=== PATIENT | female | born 1985 | race Caucasian/White ===

== ENCOUNTER → 2020-07-27 11:10 | Outpatient (CLI) | payer OTHER, SELFPAY ==
--- NOTE | ~2020-07-27 | MR_ITS ---
EXAMINATION: MR brain/brain stem wo con EXAM DATE: 07/27/2020 11:52 INDICATION: Losing control of left-sided body. Right side paresthesia. Speech impairment. Symptoms si nce December 2019 progressing. TECHNIQUE: Magnetic resonance imaging (MRI) of the brain/brain stem obtained without contrast. Florecita al T1, axial diffusion, gradient echo (T2*), T1, T2, FLAIR sequences obtained. Demyelinating protoco l was utilized including sagittal FLAIR images. There is no prior study for comparison. FINDINGS: There are approximately 7 subcentimeter T2/FLAIR signal hyperintensities identified, most o f them involving the corpus callosum. This is adding specificity for multiple sclerosis as a likely e tiology. No posterior fossa signal abnormalities. No acute infarction, intracranial hemorrhage or bra in mass. No hydrocephalus or extra-axial collections. The orbits and soft tissues are unremarkable. IMPRESSION: White matter signal abnormalities with corpus callosal involvement, consistent with multi ple sclerosis. Reviewed, dictated and finalized at location A. IMPRESSION: White matter signal abnormalities with corpus callosal involvement, consistent with multiple sclerosis.
== END ==
PROVIDERS: PCP Family Medicine; Visit Provider Family Medicine
DX: R20.2 Paresthesia of skin (principal)
CPT/HCPCS: 70551

== ENCOUNTER → 2020-11-03 07:35 | Outpatient (CLI) | payer OTHER, SELFPAY ==
--- NOTE | ~2020-11-03 | MR_ITS ---
EXAMINATION: MR thoracic spine wo con EXAM DATE: 11/03/2020 08:30 INDICATION: Multiple sclerosis ms diagnosed 09/2020, left leg weakness, pt is , no ca . TECHNIQUE: Multi-sequential, multiplanar MR images of the thoracic spine were obtained without contra st. Sagittal T1, T2, T2 fat saturation, axial T2 weighted images reviewed. There is no prior study for comparison. FINDINGS: There are at least 3 thoracic spinal cord T2 signal abnormalities consistent with multiple sclerosis. Evidence of slight volume loss within these indicating they're most likely quiescent, alth ough contrast was not administered to assess definitively. The vertebral bodies are aligned in the AP dimension. Vertebral body and disc heights are well-maintained. There are no suspicious marrow signa l abnormalities. Paraspinal soft tissue is unremarkable. Some small midthoracic Schmorl's nodes, mini mal spondylosis. Thoracic neural foramen and central canal widely patent. Mild thoracic facet arthrop athy. IMPRESSION: 1. At least 3 vague regions spinal cord signal abnormality consistent with quiescent multiple sclero sis. 2. Minimal disc disease, mild facet arthropathy. Reviewed, dictated and finalized at location A. [employer] SERV[employer] C[employer]IER IMPRESSION: 1. At least 3 vague regions spinal cord signal abnormality consistent with mavis escent multiple sclerosis. 2. Minimal disc disease, mild facet arthropathy.
--- NOTE | ~2020-11-03 | MR_ITS ---
EXAMINATION: MR cervical spine wo con EXAM DATE: 11/03/2020 09:50 INDICATION: Multiple sclerosis ms diagnosed 09/2020, left leg weakness, pt is , no ca . TECHNIQUE: Multi-sequential, multiplanar MR images of the cervical spine were obtained without contra st. Axial T2, axial T2 MERGE sequence. Sagittal T1, T2, T2 fat saturation images also obtained. Th ere is no prior study for comparison. FINDINGS: Scattered regions of vaguely increased T2 spinal cord signal abnormality at the T3, T4-5 a nd T1-2 levels. Slight volume loss suspected at the T1-2 level consistent with myelomalacia. Most lik mirza plaques of multiple sclerosis. There is mild cervical arthropathy. No central canal or neural for aminal stenosis. There are no suspicious marrow signal abnormalities. Paraspinal soft tissue is unrem arkable. IMPRESSION: Scattered cervical cord signal abnormalities consistent with multiple sclerosis, most lik mirza quiescent. Reviewed, dictated and finalized at location A. BLOWER IMPRESSION: Scattered cervical cord signal abnormalities consistent with multip le sclerosis, most likely quiescent.
== END ==
DX: G35 Multiple sclerosis (principal); M47.814 Spondylosis without myelopathy or radiculopathy, thoracic region; M51.44 Schmorl's nodes, thoracic region
CPT/HCPCS: 72141; 72146

== ENCOUNTER → 2021-02-13 14:04 | Outpatient (CLI) | payer OTHER, SELFPAY ==
--- NOTE | ~2021-02-13 | US_ITS ---
EXAMINATION: US OB follow up DATE: 02/08/2021 08:37 INDICATION: Estimated weight and growth during third trimester of . TECHNIQUE: Real-time ultrasound of the pelvis was performed. The interpreting radiologist was not pre sent for the study. COMPARISON: None. FINDINGS: There is a single living fetus in vertex presentation. The placenta is anterior and not low-lying. F etal heart rate is 150 beats per minute (bpm). The amniotic fluid index is 17.1 cm, which is normal ( 5th%-95%: 9.0-23.4 cm at 30 weeks estimated gestational age). The following biometric data were obtained: BPD: 7.7 cm -> 30 weeks 6 days Head circumference: 28.6 cm -> 31 weeks 3 days Abdominal circumference: 26.4 cm -> 30 weeks 4 days Femur length: 5.8 cm -> 30 weeks 3 days These measurements are concordant. Head circumference to abdominal circumference ratio: 1.08 (normal range 0.96-1.17). Estimated weight: 1606 g (+/-) 241 g. or 3 lbs. 9 oz. (+/-) 8 oz. IMPRESSION: 1. Single living fetus in vertex presentation with heart rate of 150 bpm. 2. Gestational age by ultrasound of 30 weeks 6 day(s) +/- 2 week(s) 1 day(s) with ultrasound estimate d date of delivery (JORGE ALBERTO) of 04/13/2021. Estimated weight is 65th percentile by Hadlock criteria when 04/20/2021 is used as the JORGE ALBERTO. Please correlate with clinical information or earlier ultrasounds f or most accurate JORGE ALBERTO. 3. Normal amniotic fluid index of 17.1 cm. Reviewed, dictated and finalized at location A. IMPRESSION: 1. Single living fetus in vertex presentation with heart rate of 150 bpm. 2. Gestational age by ultrasound of 30 weeks 6 day(s) +/- 2 week(s) 1 day(s) wi th ultrasound estimated date of delivery (JORGE ALBERTO) of 04/13/2021. Estimated we ight is 65th percentile by Hadlock criteria when 04/20/2021 is used as the JORGE ALBERTO. P lease correlate with clinical information or earlier ultrasounds for most accur ate JORGE ALBERTO. 3. Normal amniotic fluid index of 17.1 cm.
== END ==
PROVIDERS: Visit Provider Obstetrics & Gynecology
DX: O09.523 Supervision of elderly multigravida, third trimester (principal); Z3A.30 30 weeks gestation of pregnancy
CPT/HCPCS: 76816

== ENCOUNTER → 2021-03-08 08:23 | Outpatient (CLI) | payer OTHER, SELFPAY ==
--- NOTE | ~2021-03-08 | US_ITS ---
EXAMINATION: US OB follow up DATE: 03/08/2021 09:41 INDICATION: Advanced maternal age. Third trimester . TECHNIQUE: Real-time ultrasound of the pelvis was performed. The interpreting radiologist was not pre sent for the study. COMPARISON: 02/08/2021 FINDINGS: There is a single living fetus in vertex presentation. The placenta is anterior. heart rate is 145 beats per minute (bpm). The amniotic fluid index is 17.0 cm, which is normal (5th%-95%: 8.3-24. 5 cm at 33 weeks estimated gestational age). The following biometric data were obtained: BPD: 8.5 cm -> 34 weeks 2 days Head circumference: 31.6 cm -> 35 weeks 3 days Abdominal circumference: 30.2 cm -> 34 weeks 1 days Femur length: 6.4 cm -> 32 weeks 6 days These measurements are concordant. Head circumference to abdominal circumference ratio: 1.05 (normal range 0.94-1.11). Estimated weight: 2315 g (+/-) 347 g. or 5 lbs. 2 oz. (+/-) 12 oz. IMPRESSION: 1. Single living fetus in vertex presentation with heart rate of 145 bpm. 2. Normal amniotic fluid index of 17.0 cm. 3. Estimated weight is 46th percentile by Hadlock criteria when 04/20/2021 is used as the estimat ed date of delivery (JORGE ALBERTO). Please correlate with clinical information or earlier ultrasounds for most accurate JORGE ALBERTO. Reviewed, dictated and finalized at location A. IMPRESSION: 1. Single living fetus in vertex presentation with heart rate of 145 bpm. 2. Normal amniotic fluid index of 17.0 cm. 3. Estimated weight is 46th percentile by Hadlock criteria when 04/20/2021 is used as the estimated date of delivery (JORGE ALBERTO). Please correlate with clinical information or earlier ultrasounds for most accurate JORGE ALBERTO.
== END ==
PROVIDERS: Visit Provider Obstetrics & Gynecology
DX: O09.529 Supervision of elderly multigravida, unspecified trimester (principal); O99.210 Obesity complicating pregnancy, unspecified trimester; Z68.32 Body mass index [BMI] 32.0-32.9, adult
CPT/HCPCS: 76816

== ENCOUNTER → 2021-04-05 08:22 | Outpatient (CLI) | payer OTHER, SELFPAY ==
--- NOTE | ~2021-04-05 | US_ITS ---
US OB follow up DATE: 04/05/2021 09:01 INDICATION: Obesity complicating TECHNIQUE: Real-time imaging and Doppler analysis COMPARISON: 03/08/2021 obstetrical ultrasound FINDINGS: Live antonio intrauterine gestation, fetus in vertex presentation, longitudinal lie, feta l heart rate of 151 bpm. Anterior placenta. Subjectively normal amount and a fluid within it fluid index of 16.5, within the 5th percentile is 7. 5 cm-95th percentile 24.4 cm. Three-vessel umbilical cord. Biparietal diameter 9.39 cm, consistent with 38 weeks 2 days estimated gestational age Head circumference 34.31 cm; 39 weeks 4 days Abdominal circumference 35.77 cm; 39 weeks 5 days Femur length 7.17 cm; 36 weeks 5 days Based upon the current measurements, composite age by [place] formula would be 38 weeks 4 days +/- 2 weeks 5 days with JORGE ALBERTO of 04/15/2021 compared to 04/20/2021 by LMP. Estimated weight is 3617 +/- 5 142 g. Femur length/BPD: 76.34, within normal range of 71.0-87.0 Head circumference/abdominal circumference: 0.96, within normal range of 0.88-1.06 Femur length/abdominal circumference: 20.04, within normal range of 20.00-24.00 Femur length/head circumference: 20.90, within normal range of 20.73-23.10. IMPRESSION: Normal amniotic fluid index of 16.5 cm Estimated weight: 3617 +/- 542 g Reviewed, dictated and finalized at Location A. Reviewed, dictated and finalized at location B.
== END ==
PROVIDERS: Visit Provider Obstetrics & Gynecology
DX: O09.529 Supervision of elderly multigravida, unspecified trimester (principal); O99.210 Obesity complicating pregnancy, unspecified trimester; Z68.32 Body mass index [BMI] 32.0-32.9, adult
CPT/HCPCS: 76816

== ENCOUNTER 2021-07-10 09:30 | Outpatient (RCR) | payer OTHER, SELFPAY ==
--- NOTE | 2021-06-14 13:45 | PTOPEVAL ---
Thank you for referring Regina Paet to [facility].? The patient is scheduled to be seen for therapy? 2 x/week for 8 weeks. Please review, sign, date and return this plan of care ASHLYN. I agree with and certify that the following plan of care is medically necessary. Referring Physician Date Attending Provider: Dr. Aroldo Pace MD Diagnosis MS Additional Evaluation Detail She has been having symptoms for the past 10 yrs. She was finally DX 10/05 when she was . Her legs started felling heavy summer 2018. MRI 08/05 and 11/04 Therapy Fall 2019. She works at [employer] and plans to return to work 07/15/21 Subjective Information She c/o left leg weakness. She Query Text:As Reported By Patient/ was having speech slurring Family with facial numbness on left, slow speech, Numbness/ tingling into right UE. She has had falls in 2019. She has difficulty lifting left LE. She has twisted the left ankle on uneven ground. She c/ o difficulty with her balance. Difficulty with dressing, lifting left LE, carrying her baby, carrying objects, tolerance with insurance representative. She has difficulty getting off the floor. Diagnostic Tests MRI For This Problem Yes Previous Treatments Previous Treatments For This Problem pelvic floor and Fall 2019 Pain Assessment Self Report Pain Level 0 Pain Score Pain Score 0: Self Report Upper Extremity Range of Motion General Upper Extremity Range of Motion Reason Not Measured WNL/Left,WNL/Right Cervical and Lumbar Muscle Testing Lumbar Strength Upper Abdominal Strength 2 Poor Lower Abdominal Strength 2-Poor- Upper Back Extension 3 Fair Lower Back Extension 3 Fair Lower Extremity Muscle Strength Testing Hip Strength Right Hip Flexion Strength 4 Good Hip Extension Strength 3+ Fair + Hip Abduction Strength 3 Fair Left Hip Flexion Strength 4- Good - Hip Extension Strength 3- Fair - Hip Abduction Strength 2 Poor Hip Adduction Strength 2+ Poor + Knee Strength Right Knee Flexion Strength 4- Good - Knee Extension Strength 4+ Good + Left Knee Flexion Strength 3+ Fair + Knee Ex
--- NOTE | 2021-07-10 10:43 | PTOPEVAL ---
Physical Therapy Progress Note Thank you for referring Regina Pate to [facility].? Regina has attended 7 therapy visits to address impairments to MS muscle weakness. She demonstrates minimal progress with therapy services. She has been issued a HEP, however has not been consistent with performing. See summary below for progress and limitations. She has partially achieved her therapy goals at this time. Will DC skilled therapy services at this time. She does have an assessment with a pelvic floor therapist. Please review, sign, date and return this discharge summary ASHLYN. I agree with and certify that the following plan of care is medically necessary. Referring Physician Date Admitting Provider: Attending Provider: PHYSICIAN NOT ON STAFF Diagnosis MS Additional Evaluation Detail She has been having symptoms for the past 10 yrs. She was finally DX 10/05 when she was . Her legs started felling heavy summer 2018. MRI 08/05 and 11/04 Therapy Fall 2019. She works at [employer] and plans to return to work 07/15/21 Subjective Information She reports today is a bad day Query Text:As Reported By Patient/ with increased fatigue of leg Family due to stress at home. She does feel like her leg is a little better since starting therapy. She is performing HEP 2x at home and during therapy this week. She is not consistently preforming HEP. She continues to have difficulty getting on/off the floor unless has something to push up from. She is does feel she is able to carry things any different. Pain Assessment Timing of Pain Assessment Timing of Pain Assessment Re-assessment Self Report Self Report Pain Level 0 Pain Score Pain Score 0: Self Report Lower Extremity Muscle Strength Testing Hip Strength Right Hip Flexion Strength 4+ Good + Hip Extension Strength 3 Fair Hip Abduction Strength 3 Fair Hip Adduction Strength 2+ Poor + Left Hip Flexion Strength 3- Fair - Hip Extension Strength 3 Fair Hip Abduction Strength 3- Fair - Hip Adduction Strength 2 Poor Knee Strength Right Knee Flexion Strength 4- Good - Knee Extension Strength 4+ Good + Left Knee Flexion Strength 3 Fair Knee Extension Strength 4 Good Ankle S
== END 2021-09-02 08:13 | disposition home or self-care (01) ==
LOC: ANHPT 09:30
DX: G35 Multiple sclerosis (principal); R29.898 Other symptoms and signs involving the musculoskeletal system; R26.9 Unspecified abnormalities of gait and mobility
CPT/HCPCS: 97110; 97112; 97116; 97163; 97530

== ENCOUNTER 2021-07-11 10:51 | Outpatient (RCR) | payer OTHER, SELFPAY ==
--- NOTE | 2021-07-15 10:26 | PTOPEVAL ---
Thank you for referring Regina Pate to [facility].? The patient is not scheduled to be seen for additional therapy at this time but we agreed to leave the chart open for 30 days to evaluate whether she comes upon additional education or needs. She is returning to work and is concerned she doesn't have time for appointments. Please review, sign, date and return this plan of care ASHLYN. I agree with and certify that the following plan of care is medically necessary. Referring Physician Date Attending Provider: ARI RAMOS *PT Outpatient Evaluation Start: 07/11/21 14:24 Freq: Status: Active Protocol: Document 07/11/21 14:28 [facility] (Rec: 07/11/21 14:59 [facility] [email or web address]) Therapy Assessment Status Assessment Status Assessment Status Evaluation Outpatient Past Medical History Past Medical History Source of Past Medical History Patient Neurological History Hx Multiple Sclerosis Yes: 10/05 Reproductive History Hx Other Reproductive Disorders Yes: 2 children, 4 yo and 2.5 months Pain History History of Any Previous or Ongoing No Significant History Instance of Pain Evaluation Information Problem Diagnosis Pelvic floor dysfunction Onset April 2021 Cause Delivery of 2nd baby Additional Evaluation Detail has noticed urinary urge and leakage Subjective Information Pt would like to get a handle Query Text:As Reported By Patient/ on this before it gets worse Family Pain Assessment Timing of Pain Assessment Timing of Pain Assessment Assessment Self Report Self Report Pain Level 0 Pain Score Pain Score 0: Self Report Cervical and Lumbar ROM Lumbar ROM Reason Not Measured WFL/Left,WFL/Right Lower Extremity Range of Motion General Lower Extremity Range of Motion Reason Not Measured WFL/Left,WFL/Right Posture Posture Standing Position Additional Posture Comments Symmetrical bony landmarks Palpation Assessment Palpation Palpation No tenderness in back or hips Pelvic Health Evaluation Current/Past Medical History History Dribbling after Urination, Episiotomy/Tear,Urinary Incontinence Number of Vaginal Deliveries 2 Type of Protective Pads Panti-Liner Leakage Cough/Sneeze,Walking to Bathroom Leakage Amounts Wets Clothing Pelvic Floor Assessment Permission Received for External/ Yes Internal Perineal Exam External Perineal Body Mobility Present Voluntary Sustained Levator Ani Strength 5 sec at 3+/5 strength Quick Levator Ani Contraction in 15 10 Second
--- NOTE | 2021-08-07 10:46 | PCPTNOTE ---
Attending Provider: ARI RAMOS Patient:Regina Pate Date of :1985 Patient has not returned for any further treatments since 07/11/2021, therefore she will be discharged at this time. Patient?s initial visit was on 07/11/2021 11:00 and she had a total of 1 visits. The patient goals were met. [facility]. Please review, sign, date and return this discharge summary ASHLYN. I have been updated about the patient's current status and I agree with discharge from the above service at this time. Referring Physician Date
== END 2021-08-30 15:50 | disposition home or self-care (01) ==
LOC: ANHPT 10:51
DX: N39.3 Stress incontinence (female) (male) (principal)
CPT/HCPCS: 97161

== ENCOUNTER 2021-10-25 11:53 | Emergency (ER) | payer OTHER, SELFPAY ==
--- NOTE | 2021-10-25 12:01 | ED.SKABFB ---
HPI - Skin/Abscess/Foreign Bdy General Chief complaint: Skin/Abscess/Foreign Body Stated complaint: rash Time Seen by Provider: 10/25/21 12:01 Source: patient Mode of arrival: ambulatory Limitations: no limitations History of Present Illness HPI narrative: Regina Pate is a 36 yo female with a PMH of Tourette's syndrome and newly diagnosed MS, who comes to [facility] with new onset shingles on her left flank going towards her left abdominal wall. She states that she has been having nerve pain for a couple days and she was concerned because she has a history of optic neuritis that was felt to be MS related. Patient states that she has pain and the rash is new Related Data Home Medications Medication Instructions Recorded Confirmed cholecalciferol (vitamin D3) 125 125 mcg PO DAILY 08/12/21 08/12/21 mcg (5,000 unit) capsule ferrous sulfate 325 mg (65 mg 325 mg PO DAILY 08/12/21 08/12/21 iron) tablet prenat.vits,jose,[id number] 1 tablet PO DAILY 08/12/21 08/12/21 Allergies Allergy/AdvReac Type Severity Reaction Status Date / Time No Known Allergies Allergy Verified 08/12/21 08:08 Review of Systems Review of Systems: CONSTITUTIONAL: Denies fever, chills, sweats. EYES: Denies visual changes, redness, discharge. ENT: Denies rhinorrhea, congestion, sore throat, otalgia. CARDIOVASCULAR: Denies chest pain, palpitations, edema. RESPIRATORY: Denies dyspnea, wheezing, cough GASTROINTESTINAL: Denies abdominal pain, nausea, vomiting, diarrhea. GENITOURINARY: Denies dysuria, hematuria, abnormal discharge SKIN: Denies rash or itching. Has rash on left flank NEUROLOGIC: Denies numbness, or focal weakness. PSYCHIATRIC: Denies anxiety or depression. [facility] Past Medical History Medical History BMI greater than 30 Facial tingling Leg weakness Low serum iron Screening for lipid disorders Family History Family History Sibling Family history of obesity Family history of bipolar disorder Hypertension Father Family history of bipolar disorder Family history of malignant neoplasm Mother Family history of malignant neoplasm of thyroid Other Cerebrovascular accident Diabetes mellitus Family history of coronary artery disease Family history of mental disorder Social History Social History Smoking status: Never smoker Second hand tobacco smoke exposure: No Alcohol intake: current Comments At time of signature, I agree with nursing past medical, surgical, social and family history. There is no relevant family history pertinent to the presenting complaint. Exam Narrative: GENERAL: This is a well-nourished, well-developed patient, in mild distress. HEAD: normocephalic, atraumatic. EYES: Sclera clear/white. Vision is grossly intact. EARS: External ears normal, Hearing grossly intact. NOSE: External nose normal without nasal discharge, nares without redness, no rhinorrhea. THROAT: Mucous membranes moist, NECK: Neck supple, non-tender CARDIOVASCULAR: Regular rate and rhythm without murmurs, gallops, or rubs. RESPIRATORY: Clear to auscultation. Breath sounds equal bilaterally. No wheezes, rales, or rhonchi. GASTROINTESTINAL: Abdomen soft, non-tender, SKIN: warm, intact with rash that is papular with small vesicles on the left flank that is tender to any kind of touch, NEURO: awake, alert, and oriented to person, place and time. There were no obvious focal neurologic abnormalities. Steady gait EXTREMITIES: Normal range of motion. BACK: Nontender without deformity Course Course Emergency Course: [facility] on [facility] flank After discussion with pharmacy and review of [place]aughter guide started on valacyclovir which may be used during breast-feeding Valacyclovir 1000 mg twice daily x10 days If develops further vi
[2021-10-25 12:05] VITALS: BP 121/71; PULSE 74; RESP 16; TEMP 36.3; O2SAT 100
== END 2021-10-25 12:38 | disposition home or self-care (01) ==
PROVIDERS: Emergency Provider Nurse Practitioner; PCP Family Medicine
DX: B02.9 Zoster without complications (principal); G35 Multiple sclerosis
CPT/HCPCS: 99213; G0463

== ENCOUNTER → 2021-11-23 08:40 | Outpatient (CLI) | payer OTHER, SELFPAY ==
[2021-11-24 16:24] LABS: SARS-CoV-2 RNA PCR Negative
== END ==
PROVIDERS: PCP Family Medicine; Visit Provider Nurse Practitioner Family
DX: R68.89 Other general symptoms and signs (principal); Z20.822 Contact with and (suspected) exposure to COVID-19
CPT/HCPCS: C9803; U0003; U0005

== ENCOUNTER 2022-09-25 19:41 | Emergency (ER) | payer OTHER, SELFPAY ==
--- NOTE | 2022-09-25 19:47 | ED.EYEPROB ---
HPI - Eye Problem General Chief complaint: Eye Problems Stated complaint: EYE REDNESS Time Seen by Provider: 09/25/22 19:52 Source: patient and RN notes reviewed Mode of arrival: ambulatory Limitations: no limitations History of Present Illness HPI Narrative: 37-year-old female presents with concern for right eye redness, drainage irritation. Reports she woke up this morning with the eye matted, and has worsened throughout the day. She denies injury or trauma. She reports recent ear problem that she got a steroid shot for. She denies any acute sinus problems MD chief complaint: eye redness Related Data Home Medications Medication Instructions Recorded Confirmed cholecalciferol (vitamin D3) 125 125 mcg PO DAILY 08/12/21 09/25/22 mcg (5,000 unit) capsule prenat.vits,jose,[id number] 1 tablet PO DAILY 08/12/21 09/25/22 Allergies Allergy/AdvReac Type Severity Reaction Status Date / Time No Known Allergies Allergy Verified 09/25/22 19:47 Review of Systems Review of Systems: CONSTITUTIONAL: Denies malaise, chills, sweats, or fever. EYES: Denies visual changes. Reports right eye redness, irritation, discomfort, agree discharge. ENT: Denies rhinorrhea, congestion, sinus pain, otalgia or sore throat. SKIN: Denies rash or itching. NEUROLOGIC: Denies numbness, weakness, or headache. PSYCHIATRIC: Denies anxiety or depression. All systems reviewed & are unremarkable except as noted in HPI and below PMFSH Past Medical History Medical History BMI 29.0-29.9,adult BMI greater than 30 Depression Facial tingling Leg weakness Low serum iron Screening for lipid disorders Family History Family History Sibling Family history of obesity Family history of bipolar disorder Hypertension Father Family history of bipolar disorder Family history of malignant neoplasm Mother Family history of malignant neoplasm of thyroid Other Cerebrovascular accident Diabetes mellitus Family history of coronary artery disease Family history of mental disorder Social History Social History Smoking status: Never smoker Second hand tobacco smoke exposure: No Alcohol intake: current Comments At time of signature, agree with nursing past medical, surgical, social and family history. There is no relevant family history pertinent to the presenting complaint Exam Narrative: GENERAL: Well-appearing, well-nourished, and in no acute distress. HEAD: Normocephalic, atraumatic. EYES: PERRLA, left sclera and conjunctivae clear, and EOMI. No nystagmus. Right sclera and conjunctivae injected with thick green drainage. Upper and lower eyelid unremarkable, no periorbital edema noted ENT: Nares clear, turbinates pink, no rhinorrhea or epistaxis. Mucous membranes moist. TM pearly miller with sharp light reflex bilaterally; no tragal tenderness. NECK: Supple. CHEST: No respiratory distress. Speaks in full sentences. HEART: Regular rate and rhythm. SKIN: Warm, dry, no visible rash. NEURO: Alert and oriented x3. PSYCH: Normal mood and affect Course Course Emergency Course: Patient is aware of diagnosis, understands and agrees to treatment plan. Anticipatory guidance given. Patient agrees to follow-up as directed and is aware of reasons to seek care at the emergency department. Portions of this record may have been created with voice recognition software Level of Care: Express Care Visit Vital Signs Vital signs: Reviewed. MDM - Eye Problem MDM Narrative Medical decision making narrative: Consideration of the following conditions may be warranted for the presenting problem, they are not final diagnoses: Bacterial conjunctivitis, allergic conjunctivitis, viral conjunctivitis, foreign body, blepharitis, chalazion, hordeolum, corneal abrasion, preseptal cellulitis, orbi
[2022-09-25 19:50] VITALS: BP 122/64; PULSE 79; RESP 16; TEMP 37; O2SAT 100
== END 2022-09-25 19:59 | disposition home or self-care (01) ==
PROVIDERS: Emergency Provider Nurse Practitioner; PCP Family Medicine
DX: H10.9 Unspecified conjunctivitis (principal); F32.A Depression, unspecified
CPT/HCPCS: 99213; G0463

== ENCOUNTER → 2023-10-12 09:19 | Outpatient (CLI) | payer OTHER, SELFPAY ==
--- NOTE | ~2023-10-12 | US_ITS ---
EXAMINATION: US OB follow up DATE: 10/12/2023 09:53 INDICATION: Obesity complicating . TECHNIQUE: Real-time ultrasound of the pelvis was performed. COMPARISON: None. FINDINGS: There is a single living fetus in vertex presentation. The placenta is fundal and posterior. h eart rate is 152 beats per minute (bpm). The amniotic fluid index is 9.6 cm, which is normal. The cer vical length is 3.6 cm on transabdominal images, which is normal. The following biometric data were obtained: Biparietal diameter (BPD): 7.2 cm; head circumference (HC): 26.8 cm; abdominal circumference (AC): 24 .0 cm; femur length (FL): 5.2 cm. These measurements are concordant. Estimated weight is 1186 g +/- 178 g, which correlates with the 24th percentile when 12/31/23 is used as estimated date of delivery. As single measurements, these parameters are each equal to the following estimated gestational ages: BPD: 29 weeks 0 days. HC: 29 weeks 2 days. AC: 28 weeks 2 days. FL: 27 weeks 4 days. estimated gestational age based solely on measurements from this exam is 28 weeks 4 days +/- 2 weeks 0 days. IMPRESSION: 1. Single living fetus in vertex presentation. 2. Estimated weight is 1186 g +/- 178 g, which correlates with the 24th percentile when 4 is used as estimated date of delivery. Reviewed, dictated and finalized at location A. RAM ADVISOR IMPRESSION: 1. Single living fetus in vertex presentation. 2. Estimated weight is 1186 g +/- 178 g, which correlates with the 24th percentile when 12/31/23 is used as estimated date of delivery.
== END ==
PROVIDERS: PCP Obstetrics & Gynecology; Visit Provider Obstetrics & Gynecology
DX: O99.210 Obesity complicating pregnancy, unspecified trimester (principal); O09.529 Supervision of elderly multigravida, unspecified trimester; Z3A.28 28 weeks gestation of pregnancy
CPT/HCPCS: 76816

== ENCOUNTER 2023-11-05 08:43 | Outpatient (CLI) | payer OTHER, SELFPAY ==
--- NOTE | ~2023-11-05 | US_ITS ---
EXAMINATION: US OB follow up DATE: 11/05/2023 09:28 INDICATION: Obesity complicating third trimester TECHNIQUE: Real-time ultrasound of the pelvis was performed. The interpreting radiologist was not pre sent for the study. COMPARISON: 10/12/2023 FINDINGS: There is a single living fetus in vertex presentation. The placenta is posterior/fundal. Fe corinna cardiac activity and movement are noted. heart rate is 144 beats per minute (bpm). Th e amniotic fluid index is 9.5 cm which is normal (normal range: 8.6 cm to 24.2 cm). The following biometric data were obtained: Biparietal diameter (BPD): 8.3 cm; head circumference (HC): 30.7 cm; abdominal circumference (AC): 28 .2 cm; femur length (FL): 5.9 cm. These measurements are concordant. Estimated weight is 1922 g +/- 288 g, which correlates with the 45th percentile when 12/31/2023 is used as estimated date of delivery. As single measurements, these parameters are each equal to the following estimated gestational ages w ith ranges of +/- 2 standard deviations: BPD: 33 weeks 2 days ( 30 weeks 1 days - 36 weeks 2 days). HC: 34 weeks 2 days ( 31 weeks 2 days - 37 weeks 2 days). AC: 32 weeks 2 days ( 29 weeks 2 days - 35 weeks 2 days). FL: 31 weeks 1 days ( 28 weeks 1 days - 34 weeks 0 days). estimated gestational age based solely on measurements from this exam is 32 weeks 5 days +/- 2 weeks 2 days. IMPRESSION: 1. Single living fetus in vertex presentation. 2. Normal amniotic fluid index. 3. Estimated weight is 1922 g +/- 288 g, which correlates with the 45th percentile when 12/31/19 24 is used as estimated date of delivery. Reviewed, dictated and finalized at location L. INSPECTOR IMPRESSION: 1. Single living fetus in vertex presentation. 2. Normal amniotic fluid index. 3. Estimated weight is 1922 g +/- 288 g, which correlates with the 45th p ercentile when 12/31/2023 is used as estimated date of delivery.
== END 2023-11-05 08:44 ==
PROVIDERS: PCP Obstetrics & Gynecology; Visit Provider Obstetrics & Gynecology
DX: O99.210 Obesity complicating pregnancy, unspecified trimester (principal)
CPT/HCPCS: 76816

== ENCOUNTER 2023-11-21 09:17 | Observation (INO) | payer OTHER, BC, SELFPAY ==
[2023-11-21] VITALS (9 sets, daily range): BP systolic 104–121; BP diastolic 54–73; PULSE 69–88; RESP 16; TEMP 36.4; BMI 34.3
--- NOTE | 2023-11-21 09:12 | PC.NURSE ---
pt c/o vag bleed, 34 weeks . call and informed OB of pt arrival pt in w/c and taken to OB
--- NOTE | 2023-11-21 10:01 | OBADM ---
This patient, Regina Pate, admitted to the OB room 116 for observation. Patient/family oriented to hospital policies and general routines including ID bracelet, bed and alarms, visiting hours, pain management, procedures, bathroom and other care routines, personal items, smoking policy, room service/diet, and visiting hours. Patient/Family are encouraged to report perceived risks to care and to ask questions if they do not understand what they are told or what they should do.
[2023-11-21 11:15] LABS: Appearance Urine Clear (Clear); Bacteria Urine None Seen /hpf; Bilirubin Urine Negative (Negative); Blood Urine 1+ (Negative); Color Urine Yellow (Yellow); Glucose Urine UA 2+ mg/dL (Negative); Ketones Urine Negative (Negative); Leukocyte Esterase Ur Negative LEU/UL (Negative); Nitrate Urine Negative (Negative); Non Pathogenic Casts 0-2; Protein Urine Negative (Negative); RBC Urine 0-2 /hpf (0-2); Specific Grav Ur 1.009 (1.001-1.035); Squamous Epithelial Cell Urine None seen /hpf (Few); Urobilinogen Urine 0.2 mg/dL (<2.0); WBC Urine 0-5 /hpf; pH Urine 7.5 (5.0-9.0)
[2023-11-21 11:18] LABS: Add Urine Microscopic? YES
[2023-11-21] MEDS: TERBUTALINE SULFATE 1 MG/ML VIAL 0.25 MG SUB-Q (11:32)
--- NOTE | 2023-11-23 11:30 | P.PNOB_ITS ---
OB - Triage/Final Diagnosis Visit Information Reason for evaluation: threatened labor Comments/Additional reasons for admission: I have assessed the risk for this patient, Regina Pate, and determined that she would benefit from observation care. Evaluation Laboratory results: Laboratory Tests 11/21/23 10:59 Urine Color Yellow Urine Appearance Clear Urine pH 7.5 Ur Specific [place] 1.009 Urine Protein Negative Urine Glucose (UA) 2+ H Urine Ketones Negative Ur Blood (Man) 1+ H Urine Nitrate Negative Urine Bilirubin Negative Urine Urobilinogen 0.2 Leukocyte Esterase Rfl Negative Urine RBC 0-2 Urine WBC 0-5 Ur Squamous Epith Cells None seen Urine Bacteria None seen Urine Casts 0-2
== END 2023-11-21 13:25 | disposition home or self-care (01) ==
PROVIDERS: Admitting Provider Obstetrics & Gynecology; PCP Obstetrics & Gynecology; Visit Provider Obstetrics & Gynecology
DX: O47.03 False labor before 37 completed weeks of gestation, third trimester (principal); Z3A.34 34 weeks gestation of pregnancy
CPT/HCPCS: 81001; 96372; G0378; G0379; J3105

== ENCOUNTER 2023-12-11 13:05 | Emergency (ER) | payer OTHER, BC, SELFPAY ==
[2023-12-11] VITALS (16 sets, daily range): BP systolic 100–133; BP diastolic 58–98; PULSE 62–84; RESP 12–24; TEMP 36.6–36.8; O2SAT 97–100
--- NOTE | ~2023-12-11 | US_ITS ---
EXAMINATION: US pelvic complete DATE: 12/11/2023 18:47 INDICATION: vaginal bleeding. TECHNIQUE: Multiple transabdominal sonographic images of the pelvis were obtained. COMPARISON: None. FINDINGS: The uterus measures 11.0 x 7.5 x 9.0 cm. There is no free fluid in the pelvis. The endometrial comple x measures 27 mm in thickness without internal vascular flow on color Doppler. The right ovary measur es 2.4 x 1.9 x 2.0 cm. The left ovary measures 2.7 x 1.5 x 2.1 cm. There is normal vascular flow in t he ovaries. IMPRESSION: 1. Thickened endometrial complex measuring 27 mm suspicious for retained products of conception. Reviewed, dictated and finalized at location E. FOLIO CONSULTANT IMPRESSION: 1. Thickened endometrial complex measuring 27 mm suspicious for retained produc ts of conception.
[2023-12-11] MEDS: SODIUM CHLORIDE 0.9% IV 1,000 ML 999 ML IV CONT (13:26)
[2023-12-11 13:49] LABS: Basophils Absolute Auto 0.1 K/mm3 (0.0-0.1); Basophils Percent Auto 0.7 % (0.2-1.2); Eosinophils Absolute Auto 0.2 K/mm3 (0-0.3); Eosinophils Percent Auto 2.1 % (0-4.4); Hematocrit 32.9 % (37.0-47.0); Hemoglobin 9.8 g/dL (12.0-15.0); Immature Granulocyte Absolute 0.09 K/mm3 (0.00-0.031); Immature Granulocyte Percent A 0.9 % (0-0.5); Lymphocytes Absolute Auto 2.58 K/mm3 (0.9-3.2); Lymphocytes Percent Auto 25.5 % (18.3-44.2); Mean Corpuscular HGB Conc 29.8 g/dl (32-36); Mean Corpuscular Hemoglobin 27.8 pg (26-34); Mean Corpuscular Volume 93.5 fl (80-100); Mean Platelet Volume 9.3 fl (7.4-10.4); Monocytes Absolute Auto 0.6 K/mm3 (0.1-0.6); Monocytes Percent Auto 5.6 % (2.6-8.5); Neutrophils Absolute Auto 6.6 K/mm3 (1.3-6.7); Neutrophils Percent Auto 65.2 % (45.5-73.1); Platelet Count Result 393 k/mm3 (150-375); Red Blood Count 3.52 M/mm3 (4.2-5.4); Red Cell Distribution Width 13.7 % (11.5-14.5); White Blood Count 10.1 K/mm3 (4.5-10.0)
[2023-12-11 14:02] LABS: INR 1.5; Prothrombin Time 19.1 Seconds (11.1-14.7)
[2023-12-11 14:04] LABS: Alanine Aminotransferase 18 U/L (6-35); Alkaline Phosphatase 140 U/L (38-126); Anion Gap 10 mmol/L (8-16); Aspartate Amino Transferase 26 U/L (14-36); Bilirubin,Total 0.5 mg/dL (0.2-1.3); Blood Urea Nitrogen 16 mg/dL (7-17); Calcium 9.3 mg/dL (8.4-10.2); Carbon Dioxide 24 mmol/L (22-30); Chloride 107 mmol/L (98-107); Estimated CRCL calculation 105 ml/min; Estimated Glomerular Filt Rate > 60; Glucose 87 mg/dL (65-110); Potassium 3.4 mmol/L (3.4-5.0); Sodium 141 mmol/L (137-145)
[2023-12-11 14:09] LABS: Platelet Estimate Increased (Adequate)
[2023-12-11 14:10] LABS: Hypochromasia 1+ (NORMAL); Schistocytes None Seen (NORMAL)
--- NOTE | 2023-12-11 14:12 | PC.NURSE ---
Pt requesting breast pump. This RN called OB and asked for breast pump and OB said they had something we could use for her.
--- NOTE | 2023-12-11 15:36 | ED.GENADULT ---
HPI - General Adult General Chief complaint: Vaginal Bleeding Stated complaint: vag bleed Time Seen by Provider: 12/11/23 13:10 History of Present Illness HPI narrative: Patient is a 38-year-old female who presents ER with syncope. Patient is 2 weeks after having a vaginal delivery. 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 She is currently pumping. After her delivery she developed DVT in the right calf. She has been started on Xarelto. She has been having low abdominal cramping over last several days. She had a postop appointment with her speech scientist they felt everything was normal at the time. Patient passed 2 large clots the size of her hand today. After seeing them she had lightheaded and passed out. She has no chest pain or shortness of breath pretty not strike her head. No fevers or chills or sweats. No urinary frequency urgency or dysuria. She has only dark blood no bright red blood. Related Data Home Medications Medication Instructions Recorded Confirmed cholecalciferol (vitamin D3) 125 125 mcg PO DAILY 08/12/21 12/03/23 mcg (5,000 unit) capsule prenat.vits,jose,dvw-nozf-nhvxy 1 tablet PO DAILY 08/12/21 12/03/23 docosahexaenoic acid 200 mg 200 mg PO .QD 10/29/23 12/03/23 capsule (Algal [place]-3 DHA) sulconazole 1 % topical cream 1 applic topical BID 11/21/23 12/03/23 (Exelderm) rivaroxaban 15 mg tablet (Xarelto) 15 mg PO BID 12/03/23 12/03/23 Allergies Allergy/AdvReac Type Severity Reaction Status Date / Time No Known Allergies Allergy Verified 12/03/23 09:40 Review of Systems Review of Systems: All systems reviewed & are unremarkable except as noted in HPI and below Constitutional: Constitutional: Reports no additional constitutional complaints ENT: Reports system reviewed and no additional complaints, except as documented Cardiovascular: Cardiovascular: Reports no additional cardiovascular complaints Gastrointestinal: Gastrointestinal: Reports no additional gastrointestinal complaints Genitourinary: Genitourinary: Reports abnormal vaginal bleeding, Denies nocturia, Denies dysuria and Reports pelvic pain Neurologic: Reports syncope, Denies focal weakness, Denies numbness and Denies weakness [facility] Past Medical History Medical History (Updated 12/11/23 @ 19:51 by Jaime Navarro MD) Deep vein thrombosis (DVT), Depression Facial tingling Left foot drop Leg weakness Leukocytosis Low serum iron Multiple sclerosis Screening for lipid disorders Tourette disease Family History Family History Sibling Family history of obesity Family history of bipolar disorder Hypertension Father Family history of bipolar disorder Family history of malignant neoplasm Mother Family history of malignant neoplasm of thyroid Other Cerebrovascular accident Diabetes mellitus Family history of coronary artery disease Family history of mental disorder Social History Social History Smoking status: Never smoker Second hand tobacco smoke exposure: No Alcohol intake: current Exam Narrative: GENERAL: Well-appearing, well-nourished, and in no acute distress. HEAD: Normocephalic, atraumatic. EYES: PERRL and EOMI. normal conjunctiva. ENT: Mucous membranes moist. CHEST: Clear to auscultation. No respiratory distress. HEART: Regular rate and rhythm. Normal peripheral pulses. ABDOMEN: Soft, nontender, nondistended. : Normal external genitalia. Moderate amount of clot burden removed from the vagina with ring forceps. Small dot of blood trickling from cervical os. No discharge or tenderness. EXTREMITIES: Normal range of motion. No edema. SKIN: Warm, dry, no rash. NEURO: \Alert and oriented x3. Facial tics at baseline. PSYCH: Normal mood and affect. Course Course Emergency Course: Discussed case with patient's Ob group and feels patient can likely
== END 2023-12-11 20:14 | disposition home or self-care (01) ==
PROVIDERS: Emergency Provider Emergency Medicine; PCP Family Medicine
DX: O72.2 Delayed and secondary postpartum hemorrhage (principal); R55 Syncope and collapse; O87.1 Deep phlebothrombosis in the puerperium; I82.4Z1 Acute embolism and thrombosis of unspecified deep veins of right distal lower extremity; O99.355 Diseases of the nervous system complicating the puerperium; G35 Multiple sclerosis; Z79.01 Long term (current) use of anticoagulants
CPT/HCPCS: 36415; 76856; 80053; 81025; 85025; 85610; 85730; 86850; 86900; 86901; 96360; 96361; 99284; J7030

== ENCOUNTER 2023-12-24 08:15 | Outpatient (RCR) | payer OTHER, BC, SELFPAY ==
[2023-12-23 13:27] LABS: Hematocrit 25.3 % (37.0-47.0); Hemoglobin 7.3 g/dL (12.0-15.0)
[2023-12-24 08:47] VITALS: TEMP 37
[2023-12-24] MEDS: ACETAMINOPHEN 325 MG TABLET 650 MG PO (08:47)
[2023-12-24] MEDS: diphenhydrAMINE HCl CAP 25 MG CAPSULE PO (08:47)
[2023-12-24] MEDS: SODIUM CHLORIDE 0.9% IV 250 ML 30 ML IV CONT (08:48)
[2023-12-24 09:00] VITALS: BP 111/58; PULSE 84; RESP 14; TEMP 37; O2SAT 100
[2023-12-24 09:15] VITALS: BP 110/51; PULSE 84; RESP 14; TEMP 36.9; O2SAT 100
[2023-12-24 10:15] VITALS: BP 109/55; PULSE 81; RESP 16; TEMP 36.8; O2SAT 100
[2023-12-24 11:15] VITALS: BP 104/51; PULSE 75; RESP 14; TEMP 36.8; O2SAT 100
[2023-12-24 12:00] VITALS: BP 102/55; PULSE 78; RESP 14; TEMP 36.9; O2SAT 100
== END 2024-03-23 23:59 | disposition home or self-care (01) ==
LOC: ANHCPCTRAN 08:15
PROVIDERS: PCP Family Medicine; Visit Provider Internal Medicine Hematology & Oncology
DX: D50.0 Iron deficiency anemia secondary to blood loss (chronic) (principal)
CPT/HCPCS: 36415; 36430; 85014; 85018; 86850; 86900; 86901; 86923; A9270; J7050; P9016

== ENCOUNTER 2024-01-27 09:42 | Outpatient (CLI) | payer OTHER, BC, SELFPAY ==
--- NOTE | ~2024-01-27 | US_ITS ---
EXAMINATION: US venous doppler [facility] DATE: 01/27/2024 10:54 INDICATION: Deep venous thrombosis in puerperium TECHNIQUE: Grayscale ultrasound images without and with compression and Doppler ultrasound images of the bilateral lower extremity veins were obtained. COMPARISON: None. FINDINGS: The visualized portions of right common femoral vein, profunda (deep) femoral vein, femoral vein, pop liteal vein, posterior tibial veins, peroneal veins, gastrocnemius vein and greater saphenous vein ou tflow are patent. The visualized portions of left common femoral vein, profunda femoral vein, femoral vein, popliteal v ein, posterior tibial veins, peroneal veins, gastrocnemius vein and greater saphenous vein outflow ar e patent. IMPRESSION: 1. No deep venous thrombosis in either lower limb. Reviewed, dictated and finalized at location B.
== END 2024-01-27 09:43 | disposition home or self-care (01) ==
LOC: ANHIMG 09:42
PROVIDERS: PCP Family Medicine; Visit Provider Nurse Practitioner Adult Health
DX: O87.1 Deep phlebothrombosis in the puerperium (principal)
CPT/HCPCS: 93970

== ENCOUNTER 2024-02-03 11:35 | Outpatient (CLI) | payer OTHER, BC, SELFPAY ==
[2024-02-03 12:00] LABS: Hematocrit 36.7 % (37.0-47.0); Hemoglobin 11.4 g/dL (12.0-15.0); Mean Corpuscular HGB Conc 31.1 g/dl (32-36); Mean Corpuscular Hemoglobin 28.7 pg (26-34); Mean Corpuscular Volume 92.4 fl (80-100); Mean Platelet Volume 9.5 fl (7.4-10.4); Platelet Count Result 190 k/mm3 (150-375); Red Blood Count 3.97 M/mm3 (4.2-5.4); Red Cell Distribution Width 13.2 % (11.5-14.5); White Blood Count 6.5 K/mm3 (4.5-10.0)
[2024-02-05 15:21] LABS: Iron 76 ug/dL (37-170)
[2024-02-05 15:32] LABS: Percent Iron Saturation 24 % (20-50)
== END 2024-02-03 11:36 | disposition home or self-care (01) ==
PROVIDERS: PCP Family Medicine; Visit Provider Internal Medicine Hematology & Oncology
DX: D50.0 Iron deficiency anemia secondary to blood loss (chronic) (principal)
CPT/HCPCS: 36415; 82728; 83540; 83550; 85027

== ENCOUNTER 2024-03-18 09:16 | Outpatient (CLI) | payer OTHER, SELFPAY ==
[2024-03-18 09:54] LABS: Hematocrit 35.6 % (37.0-47.0); Hemoglobin 11.1 g/dL (12.0-15.0); Mean Corpuscular HGB Conc 31.2 g/dl (32-36); Mean Corpuscular Hemoglobin 27.7 pg (26-34); Mean Corpuscular Volume 88.8 fl (80-100); Mean Platelet Volume 8.7 fl (7.4-10.4); Platelet Count Result 216 k/mm3 (150-375); Red Blood Count 4.01 M/mm3 (4.2-5.4); Red Cell Distribution Width 12.7 % (11.5-14.5); White Blood Count 6.3 K/mm3 (4.5-10.0)
[2024-03-18 11:47] LABS: Iron 47 ug/dL (37-170)
[2024-03-18 11:56] LABS: Percent Iron Saturation 14 % (20-50)
[2024-03-18 12:24] LABS: Ferritin 8.22 ng/mL (6.24-137)
[2024-03-21 10:59] LABS: Homocysteine 7.2 umol/L (<10.4)
[2024-03-21 19:50] LABS: Lupus dRVVT Screen 39 sec (< OR = 45); PTT-LA Screen 30 sec (< OR = 40)
[2024-03-23 07:09] LABS: Antithrombin III Activity 104 % normal (80-135)
[2024-03-23 12:04] LABS: Protein S Antigen, Free 87 % normal (50-147)
[2024-03-25 19:12] LABS: Factor V (Leiden) Mutation NEGATIVE
== END 2024-03-18 09:17 | disposition home or self-care (01) ==
LOC: ANHLAB 09:18
PROVIDERS: PCP Family Medicine; Visit Provider Internal Medicine Hematology & Oncology
DX: I82.4Y1 Acute embolism and thrombosis of unspecified deep veins of right proximal lower extremity (principal); D50.0 Iron deficiency anemia secondary to blood loss (chronic)
CPT/HCPCS: 36415; 81240; 81241; 82728; 83090; 83540; 83550; 85027; 85300; 85303; 85306; 85613; 85730; 86146

== ENCOUNTER 2024-04-05 09:23 | Outpatient (CLI) | payer OTHER, SELFPAY ==
--- NOTE | ~2024-04-05 | US_ITS ---
EXAMINATION: US venous doppler [facility] DATE: 04/05/2024 10:31 INDICATION: Left lower limb localized swelling. TECHNIQUE: Grayscale ultrasound images without and with compression and Doppler ultrasound images of the left lower extremity veins were obtained. COMPARISON: Ultrasound 01/27/2024 FINDINGS: The visualized portions of left common femoral vein, profunda (deep) femoral vein, femoral vein, popl iteal vein, peroneal veins, posterior tibial veins, and greater saphenous vein outflow are patent. IMPRESSION: 1. No deep venous thrombosis. Reviewed, dictated and finalized at location A.
== END 2024-04-05 09:24 | disposition home or self-care (01) ==
PROVIDERS: PCP Family Medicine; Visit Provider Internal Medicine Hematology & Oncology
DX: R22.42 Localized swelling, mass and lump, left lower limb (principal)
CPT/HCPCS: 93971

== ENCOUNTER 2025-05-03 16:40 | Outpatient (CLI) | payer OTHER, SELFPAY ==
--- NOTE | ~2025-05-03 | XR_ITS ---
CHEST RADIOGRAPH, PA AND LATERAL CLINICAL HISTORY: R07.9 - Chest pain, unspecified . COMPARISON: None available TECHNIQUE: PA and lateral views of the chest. FINDINGS The cardiomediastinal silhouette is unremarkable. The lungs are clear. Visualized osseous structures and soft tissues are unremarkable. IMPRESSION: No focal infiltrate or effusion. Reviewed, dictated and finalized at location A.
[2025-05-03 17:11] LABS: Basophils Absolute Auto 0.1 K/mm3 (0.0-0.1); Basophils Percent Auto 0.9 % (0.2-1.2); Eosinophils Absolute Auto 0.2 K/mm3 (0-0.3); Eosinophils Percent Auto 2.7 % (0-4.4); Hematocrit 28.1 % (37.0-47.0); Hemoglobin 8.7 g/dL (12.0-15.0); Immature Granulocyte Absolute 0.23 K/mm3 (0.00-0.031); Immature Granulocyte Percent A 3.6 % (0-0.5); Lymphocytes Absolute Auto 1.79 K/mm3 (0.9-3.2); Lymphocytes Percent Auto 28.3 % (18.3-44.2); Mean Corpuscular Hemoglobin 25.8 pg (26-34); Mean Corpuscular Volume 83.4 fl (80-100); Mean Platelet Volume 9.5 fl (7.4-10.4); Monocytes Absolute Auto 0.5 K/mm3 (0.1-0.6); Monocytes Percent Auto 7.3 % (2.6-8.5); Neutrophils Absolute Auto 3.6 K/mm3 (1.3-6.7); Neutrophils Percent Auto 57.2 % (45.5-73.1); Platelet Count Result 218 k/mm3 (150-375); Red Blood Count 3.37 M/mm3 (4.2-5.4); White Blood Count 6.3 K/mm3 (4.5-10.0)
[2025-05-03 17:23] LABS: Alanine Aminotransferase 69 U/L (6-35); Albumin Level 3.5 g/dL (3.5-5.1); Alkaline Phosphatase 118 U/L (38-126); Anion Gap 6 mmol/L (4-12); Aspartate Amino Transferase 34 U/L (14-36); Bilirubin,Total 0.3 mg/dL (0.2-1.3); Blood Urea Nitrogen 18 mg/dL (7-17); Calcium 8.7 mg/dL (8.4-10.2); Carbon Dioxide 23 mmol/L (22-30); Chloride 111 mmol/L (98-107); Estimated Glomerular Filt Rate > 60; Glucose 104 mg/dL (65-110); Potassium 3.7 mmol/L (3.4-5.0); Sodium 140 mmol/L (137-145); Total Protein 6.8 g/dL (6.3-8.2)
[2025-05-03 17:29] LABS: Iron 34 ug/dL (37-170)
[2025-05-03 17:31] LABS: NT Pro B Type Natriuretic Pept 760 pg/mL (19.9-100)
[2025-05-03 17:38] LABS: Percent Iron Saturation 11 % (20-50)
[2025-05-03 17:44] LABS: D Dimer 1.56 ug/mL (<0.48)
--- OUTSIDE RECORDS SUMMARY | 2025-05-03 17:46 | XMS_ITS | Continuity of Care Document ---
Author Organization [facility] Address [address] [facility] [place] [address] Phone Care Team Providers Care Tapping Machine Operator Automatic Name Role Phone Triston AGUIRRE, Lewis Unavailable Unavailable Allergies, Adverse Reactions, Alerts Substance Reaction Status Criticality No Known Allergies Active No Inform ation Procedures Procedure Date OFFICE/OUTPATIENT VISIT, EST Advance Directives Directive Yes / No Effective Date File Name No Information Encounters Encounter Description Practice Location Reason(s) For Visit Diagnoses Date Provider Providers Copied on Encounter [facility] [place], [address] [place], [place], [id number], tel:[phone] [facility] [place] No Information 2 Triston Saucedo. [address] [facility] [place], [id number] , . tel:[phone] Referring Provider: Lewis Goldstein, [address], [id number]. tel:[phone] OFFICE/OUTPAT IENT VISIT, EST [facility] [place], [address] [place], [id number], tel:[phone] [facility] [place] URI (chief complaint) Viral Infection, UnspecifiedFever 2 Triston Saucedo. [address], [facility] [place], [place], [id number] , [place]. tel:[phone] Referring Provider: Lewis Goldstein, [address] [place], [place], [id number]. tel:[phone] Family History Family Member Type Diagnosis Age At Onset Father Problem (finding) Depression Father Problem (finding) Coronary artery disease Mother Problem (finding) Cancer, thyroid Sister Problem (finding) Hypertension Payers Payer name Insurance type Covered republican ID Authoriza tion(s) No Information Social History Type Description Quantity Date Captured Comments Sex Female Smoking Status No Information Chief Complaint And Reason For Visit No Information Plan Of Treatment Date Type Action Status No Information History Of Present Illness Encounter Date Complaint History Of Prese nt Illness No Information Instructions Date Instruction Additional Infor mation No Information Assessments Type Assessment Date No Information
--- OUTSIDE RECORDS SUMMARY | 2025-05-03 17:46 | XMS_ITS | Clinical Summary ---
Author Organization [facility] Address [address] [facility] [place] [address] Care Team Providers Care Waiter And Cashier Name Role Phone Sandeep Son MD Primary Care Provider [phone] Allergies No known active allergies Medications cholecalciferol, Vitamin D3, 125 mcg (5,000 unit) Capsule Take by mouth. 04/16/2021 Active vit-iron fumarate-fa (DOT ) 28 mg iron- 800 mcg Tablet Take 1 Tablet by mouth daily. Active aspirin (ECOTRIN EC) 81 mg Tablet, Delayed Release (E.C.) Take 81 mg by mouth daily. Active ferrous sulfate 325 mg (65 mg iron) tablet Take 325 mg by mouth daily. Active DULoxetine (CYMBALTA) 20 mg Capsule, Delayed Release(E.C.) Take 20 mg by mouth daily. Active Active Problems No known active problems Encounters Date Type Department Care Team Description 05/02/2025 External Device Data [facility] ABSTRACTION Provider, Abstract 04/18/2025 External Device Data [facility]CTION Provider, Abstract 04/17/2025 9:00 AM CDT Ancillary Procedure [address] [address] Breonna Kwan MD Abnormal ultrasound of breast 04/06/2025 External Device Data [facility] ABSTRACTION Provider, Abstract 04/04/2025 External Device Data [facility] ABSTRACTION Provider, Abstract 02/01/2025 External Device Data [facility] ABSTRACTION Provider, Abstract from Last 3 Months Family History Medical History Relation Name Comments Cancer Father Heart Disease Mother Thyroid Cancer Mother Relation Name Status Comments Daughter 1 Alive Daughter 2 Alive Father Alive Mother Alive Sister 1 Alive Sister 2 Alive Social History Tobacco Use Types Packs/Day Years Used Date Smoking Tobacco: Never Smokeless Tobacco: Never Tobacco Cessation:Counseling Given: Not Answered Alcohol Use Standard Drinks/Week Comments Never 0 (1 standard drink = 0.6 oz pur e alcohol) Comments No Sex and Gender Information Value Date Recorded Sex Assigned at Not on file Legal Sex Female 9:04 AM SENIOR PRODUCT MANAGER Gender Identity Not on file Sexual Orientation Not on file Last Filed Vital Signs Vital Sign Reading Time Taken Comments Blood Pressure 121/70 01/10/2025 3:00 PM SENIOR PRODUCT MANAGER Pulse 77 01/10/2025 2:55 PM SENIOR PRODUCT MANAGER Temperature 36.2 C (97.2 F) 01/10/2025 2:55 PM SENIOR PRODUCT MANAGER Respiratory Rate 16 01/10/2025 2:55 PM SENIOR PRODUCT MANAGER Oxygen Saturation 98% 01/10/2025 2:55 PM SENIOR PRODUCT MANAGER Inhaled Oxygen Concentration - - Weight 108.4 kg (239 lb) 01/10/2025 2:55 PM SENIOR PRODUCT MANAGER Height 170.2 cm (5' 7) 12/23/2023 9:57 AM SENIOR PRODUCT MANAGER Body Mass Index 37.43 12/23/2023 9:57 AM SENIOR PRODUCT MANAGER Plan of Treatment Upcoming Encounters Date Type Department Care Team (Late st Contact Info) Description 07/19/2025 2:45 PM CDT Office Visit [facility] [place] [address] [facility] [address] [address] Kai Mora MD [address] [facility] [address] [place] [address] Health Maintenance Due Date Last Done Comments Pre-Diabetes and Diabetes Screening 1984 HPV/Cotest (21-29) 01/13/2005 CERVICAL CANCER SCREENING 01/13/2014 HPV/Cotest (30-65) 01/13/2014 PAP SMEAR 01/13/2014 INFLUENZA VACCINE (#1) 2024 08/16/2013 BREAST CANCER SCREENING 11/04/2025 11/04/2024 DTAP/TDAP/TD VACCINES (3 - Td or Tdap) 02/01/2031 02/01/2021, 07/07/2017 HEPATITIS B VACCINES Completed 11/11/2002, 04/12/2002, 03/08/2002 HPV VACCINES Aged Out No longer eligi ble based on patient's age to complete this topic Procedures Procedure Name Priority Date/Time Associated Diagnosis Comments MAMMO BREAST US RIGHT LTD Routine 04/17/2025 9:20 AM CDT Abnormal ultrasound of breast MAMMO 3D PILY SCREEN BILAT W OR WO CAD Routine 11/04/2024 9:25 AM SENIOR PRODUCT MANAGER Visit for screening mammogram from Last 3 Months or Most Recently Relevant to Health Maintenance Results * (ABNORMAL) MAMMO BREAST US RIGHT LTD (04/17/2025 9:20 AM CDT) Anatomical Region Laterality Modality Right Ultrasound 04/17/2025 9:45 AM CDT Impressions 04/24/2025 12:10 PM CDT IMPRESSION: No change benign-appearing solid nodule inner portion right breast. A repeat mammogram of both breasts in six months is recommended as well as ultrasound exam on the right. BI-RADS Category 3-Probably benign. Narrative 04/24/2025 12:10 PM CDT INDICATION: Follow-up. Comparison is made to previous mammogram dated 11/04/2024 and ultrasound exam dated 11/30/2024. As compared to the prior ultrasound exam, a benign-appearing nodule is again noted near the 3:00 position. A small lymph node or fibroadenoma is again suspected. This corresponds to the abnormality in question on mammographic study dated 11/04/2024. us Breonna Kwan MD MAMMO ORDERABLES Final Resu lt * MAMMO 3D PILY SCREEN BILAT W OR WO CAD (11/04/2024 9:25 AM SENIOR PRODUCT MANAGER) Anatomical Region Laterality Modality Breast Bilateral Mammography 11/04/2024 9:26 AM SENIOR PRODUCT MANAGER Impressions 11/04/2024 10:05 AM SENIOR PRODUCT MANAGER IMPRESSION: 1. BIRADS Category 0, incomplete: Needs additional imaging evaluation. Ultrasonographic evaluation of the right breast mass is recommended for further characterization. 2. Left breast findings are benign and a repeat left breast mammogram is recommended in 12 months. Narrative 11/04/2024 10:05 AM SENIOR PRODUCT MANAGER EXAM: MAMMO 3D PILY SCREEN BILAT W OR WO CAD DATE: 11/04/2024 CLINICAL HISTORY: Screening in an asymptomatic patient TECHNIQUE: Bilateral full field digital mammography and digital tomosynthesis were performed in the CC and MLO projections. The patient's most recent mammogram was performed many years ago and none are available for comparison at this time. Therefore, this is considered a baseline screening mammogram. CAD was utilized. FINDINGS: Scattered fibroglandular densities are present. There is no suspicious asymmetry or mass in the left breast. There is no evidence of architectural distortion or suspicious microcalcification. Within the anterior to mid inner right breast at approximately 3:00 3.5 cm deep to the nipple is an ovoid dense 9 mm mass (CC image 29/63 and MLO image 46/82). Ultrasonographic evaluation of the right breast mass is recommended. us Sandeepkeeley Son MD MAMMO ORDERABLES Final Result from Last 3 Months or Most Recently Relevant to Health Maintenance Insurance [facility] BENEFIT [facility] RX [facility] [employer] [facility] OPEN ACCESS Care Teams Waiter And Cashier Relationship Specialty Start Date End Date Sandeep Son MD [address] [address] PCP - General Family Practice 12/22/23
--- OUTSIDE RECORDS SUMMARY | 2025-05-03 17:46 | XMS_ITS | Clinical Summary ---
Author Organization [facility] Address [address] [place] [address] Care Team Providers Care Pipe Out Worker Name Role Phone Unknown, Provider Primary Care Provider Unavaila ble Source Comments [facility],non-owned Affiliates and Associated Physician Practices is amultiple site organization consisting of ambulatory clinics and hospital sitesin [place], [place] and [place]. This disclosure is being madepursuant to the Care Everywhere program and may not contain all information available regarding this patient. Last updated 18.[facility] Allergies Active Allergy Reactions Criticality Noted Date Comments Gluten Meal 07/07/2017 Medications * Be aware that medications may not be up to date on this document. Alwaysverify current medications with the patient. vitamin D, cholecalciferol , 50 MCG (1999) tablet Take 1 (one) tablet by mouth once daily Active potassium chloride ER (Micro-K) 10 MEQ capsule Take 1 (one) capsule by mouth daily with breakfast Active aspirin EC (Ecotrin) 81 MG tablet Take 1 (one) tablet by mouth once daily Active Docosahexaenoic Acid (DHA COMPLETE PO) Active ferrous sulfate 325 (65 FE) MG tabletIndicatio ns:Iron Deficiency Anemia Take 1 (one) tablet by mouth once daily Reasons: Anemia From Inadequate Iron in the Body Active Vit-DSS-Fe Fum-FA ( vitamin with iron) tabletIndicatio ns: Take 1 (one) tablet by mouth once daily Reasons: Active lactobacillus extra strength (Florajen) capsule Take 1 (one) capsule by mouth once daily Active Active Problems Problem Noted Date Diagnosed Date Advanced maternal age in multigravida, second tr imester 08/18/2023 BMI 30.0-30.9,adult 08/18/2023 Multiple sclerosis 12/11/2022 Encounter for preconception consultation 023 Planning to be a surrogate 12/11/2022 Resolved Problems Problem Noted Date Diagnosed Date Resolved Date Encounter for supervision of high risk primigravida of advanced maternal age 0111/26/2020 Overview (12/28/2020): 10/18/20 NIPT- Low Risk- FE Encounter for anatomic survey 11/26/2020 12/11/2022 Encounter for nuchal translucency testing 01/30/2017 12/11/2022 Immunizations Immunization Administration Dates Next Due TDAP (7yrs+) 07/07/2017 Family History Medical History Relation Name Comments Other - Psychiatric Maternal Grandfather Renal Disease Maternal Grandfather Arthritis - Osteo Mother Cancer - Thyroid Mother Thyroid Disease Mother CVA Paternal Grandfather Diabetes - Type 2 Paternal Grandfather Dementia Paternal Grandmother Bipolar Disorder Sister Hypertension Sister Relation Name Status Comments Father Alive Maternal Grandfather Mother Alive Paternal Grandfather Paternal Grandmother Sister Social History Tobacco Use Types Packs/Day Years Used Date Smoking Tobacco: Never Smokeless Tobacco: Never Tobacco Cessation:Counseling Given: Not Answered Alcohol Use Standard Drinks/Week Comments Not Currently 0 (1 standard drink = 0.6 oz pur e alcohol) Education Answer Date Recorded What is the highest level of school you have completed or the highest degree you have received? 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 Not on file Not on file Last Filed Vital Signs Vital Sign Reading Time Taken Comments Blood Pressure 118/62 08/19/2023 10:09 AM CDT Pulse 85 08/19/2023 10:09 AM CDT Temperature 36.5 C (97.7 F) 11/26/2020 8:25 AM QUALITY RN Respiratory Rate 16 10/06/2016 9:25 AM QUALITY RN Oxygen Saturation 97% 10/06/2016 9:25 AM QUALITY RN Inhaled Oxygen Concentration - - Weight 94.7 kg (208 lb 12.8 oz) 023 10:09 AM CDT Height 170.2 cm (5' 7) 08/19/2023 10:0 9 AM CDT Body Mass Index 32.7 08/19/2023 10:09 AM CDT Plan of Treatment Health Maintenance Due Date Last Done Comments LIPID TESTING 1984 MAMMOGRAM 1984 HIV SCREENING 01/13/1999 HEPATITIS C SCREENING 01/09/2002 HEPATITIS B VACCINE (1 of 3 - 19+ 3-dose series) 01/13/2003 PAP SMEAR 01/13/2005 COVID-19 VACCINE ( season) 2024 09/28/2022, 12/06/2021, 06/03/2021, Additional history exists DEPRESSION SCREENING 11/16/2024 INFLUENZA VACCINE (Season Ended) 2025 08/16/2013 DTAP/TDAP/TD VACCINES (2 - Td or Tdap) 07/07/2027 07/07/2017 ZOSTER VACCINE (1 of 2) 01/13/2034 HIB VACCINE Aged Out No longer eligi ble based on patient's age to complete this topic HPV VACCINE Aged Out No longer eligi ble based on patient's age to complete this topic MENINGOCOCCAL (Group B) VACCINE SHARED DECISION-MAKING Aged Out No longer eligible based on patient's age to complete this topic MENINGOCOCCAL GROUPS A/C/Y/W VACCINE Aged Out No longer eligible based on patient's age to complete this topic PNEUMOCOCCAL VACCINE Aged Out No long er eligible based on patient's age to complete this topic Insurance [facility] [employer] Care Teams Pipe Out Worker Relationship Specialty Start Date End Date Unknown, Provider PCP - General 10/06/16
--- OUTSIDE RECORDS SUMMARY | 2025-05-03 17:46 | XMS_ITS | Encounter Summary ---
Author Organization [facility] Address [address] [place] [address] Care Team Providers Care Legal Editor Name Role Phone Sandeep Son MD Primary Care Provider [phone] Encounter Details Date Type Department Care Team (Late st Contact Info) Description 05/02/2025 External Device Data [facility] ABSTRACTION Provider, Abstract NO ADDRESS ON FILE Social History Tobacco Use Types Packs/Day Years Used Date Smoking Tobacco: Never Smokeless Tobacco: Never Alcohol Use Standard Drinks/Week Comments Never 0 (1 standard drink = 0.6 oz pur e alcohol) Comments No Sex and Gender Information Value Date Recorded Sex Assigned at Not on file Legal Sex Female 9:04 AM DIGITAL ENGINEER Gender Identity Not on file Sexual Orientation Not on file documented as of this encounter Plan of Treatment Upcoming Encounters Date Type Department Care Team (Late st Contact Info) Description 07/19/2025 2:45 PM CDT Office Visit [facility] Oncology and Hematology - [place] [address] [place] [address] [address] [place] [address] Kai Mora MD [address] [place] [address] documented as of this encounter Visit Diagnoses Not on filedocumented in this encounter Care Teams Legal Editor Relationship Specialty Start Date End Date Sandeep Son MD [address] [place] [address] PCP - General Family Practice 12/22/23 documented as of this encounter
--- OUTSIDE RECORDS SUMMARY | 2025-05-03 17:46 | XMS_ITS | Referral Summary ---
Author Organization [facility] Address [address] [place] [address] Phone Care Team Providers Care Air Quality Instrument Specialist Name Role Phone Sandeep Son MD Primary Care Provider Jd Huber MD Unavailable Encounters Date Type Department Care Team Description 04/25/2025 Telephone [facility] Multiple Sclerosis [address] [place] [address] Mabel Goodson from Last 3 Months Allergies No known active allergies Medications aspirin 81 mg enteric coated tablet Take 1 tablet (81 mg total) by mouth daily Active biotin 10,000 mcg capsule [address] (CYMBALTA) 20 mg capsule Take 1 capsule (20 mg total) by mouth daily 5 Active progesterone (PROMETRIUM) 200 mg capsule 5 Active magnesium gluconate 200 mg tablet 5 Active cholecalciferol, vitD3,/vit K2 (vitamin D3-vitamin K2) 125 mcg (5,000 unit)-100 mcg capsule 5 Active ferrous bis-glycinate chelate (IRON BISGLYCINATE CHELATE ORAL) 50 mg 4 Active Active Problems Problem Noted Date Diagnosed Date Medication monitoring encounter 11/03/2022 Vitamin D deficiency 11/03/2022 Multiple sclerosis 12/07/2020 Abnormal MRI 12/07/2020 Left leg weakness 11/05/2020 Obstructive sleep apnea 09/25/2020 Tourettes syndrome 09/25/2020 History of optic neuritis, left eye Resolved Problems Problem Noted Date Diagnosed Date Resolved Date 20 weeks gestation of 12/07/2020 07/09/2021 Immunizations Immunization Administration Dates Next Due Hep B, Adolescent or Pediatric 11/11/2002,2001,03/08/2002 IPV 11/11/2002,04/12/2002,03/08/2002 Influenza, Quadrivalent, Spl it, Preservative Free, Intramuscular 08/16/2013 MMR 04/12/2002,03/08/2002 Td, adsorbed 11/11/2002,04/12/2002,03/08/2002 Tdap 02/01/2021,07/07/2017 Social History Tobacco Use Types Packs/Day Years Used Date Smoking Tobacco: Never Tobacco Cessation:Counseling Given: Not Answered Comments No Sex and Gender Information Value Date Recorded Sex Assigned at Not on file Legal Sex Female 10:26 AM SEAFOOD SERVICE TEAM MEMBER Gender Identity Female 02/28/2023 8:50 AM CDT Sexual Orientation Straight 02/28/2023 8: 50 AM CDT Last Filed Vital Signs Vital Sign Reading Time Taken Comments Blood Pressure 108/70 01/24/2025 9:30 AM CDT Pulse 87 01/24/2025 9:30 AM CDT Temperature 36.7 C (98 F) 07/26/2024 9:27 AM CDT Respiratory Rate 18 07/16/2024 10:3 6 AM CDT Oxygen Saturation 98% 07/16/2024 10: 36 AM CDT Inhaled Oxygen Concentration - - Weight 109.2 kg (240 lb 12.8 oz) 01/24/2025 9:30 AM CDT Height 170.2 cm (5' 7) 01/24/2025 9:30 AM CDT Body Mass Index 37.71 01/24/2025 9:30 AM CDT Plan of Treatment Not on file Procedures Procedure Name Priority Date/Time Associated Diagnosis Comments HEPATITIS PANEL, ACUTE Routine 01/19/2024 12:38 PM SEAFOOD SERVICE TEAM MEMBER Multiple sclerosis (HCC) from Last 3 Months or Most Recently Relevant to Health Maintenance Results * Hepatitis panel, acute Blood (01/19/2024 12:38 PM SEAFOOD SERVICE TEAM MEMBER) Hep A IgM Nonreactive Nonreactive [facility] Hep B core IgM Nonreactive Nonreactive [facility] Hep C Ab Nonreactive Nonreactive [facility] Comment:Antibodies to HCV no t detected. Does NOT exclude the possibility of recent exposure to HCV. Current interpretive data was last revised on 22 HepBsAg Nonreactive Nonreactive [facility] Blood 01/19/2024 12:3 8 PM SEAFOOD SERVICE TEAM MEMBER 01/19/2024 1:59 PM SEAFOOD SERVICE TEAM MEMBER us Jd Huber MD LAB MICROBIOLOGY - GENERAL ORDER SOBIA Final Result [facility] Department [place] [address] from Last 3 Months or Most Recently Relevant to Health Maintenance Insurance [facility] [id number] [facility] [id number] [facility] [id number] Care Teams Air Quality Instrument Specialist Relationship Specialty Start Date End Date Sandeep Son MD PCP - General Family Medicine 08/07/20 Jd Huber MD Neurologist Neurology 04/01/24
--- OUTSIDE RECORDS SUMMARY | 2025-05-03 17:46 | XMS_ITS | Encounter Summary ---
Author Organization [facility] Address [address] [place] [address] Care Team Providers Care Mid Teacher Name Role Phone Sandeep Son MD Primary Care Provider [phone] Alondra Wolfe DPT Unavailable [phone] Jd Huber MD Unavailable Encounter Details Date Type Department Care Team (Late st Contact Info) Description 10/04/2021 Telephone [facility] Radiology [address] [place], [place] [id number] Blanca Bailey MD [address] [place] [address] Social History Tobacco Use Types Packs/Day Years Used Date Smoking Tobacco: Never Comments Unknown Sex and Gender Information Value Date Recorded Sex Assigned at Not on file Legal Sex Female 10:26 AM NETSUITE CONSULTANT Gender Identity Female 02/28/2023 8:50 AM CDT Sexual Orientation Straight 02/28/2023 8: 50 AM CDT documented as of this encounter Plan of Treatment Not on file documented as of this encounter Visit Diagnoses Not on filedocumented in this encounter Additional Health Concerns Infection Onset Date Last Indicated Resolved Time COVID: Suspected 03/23/2022 03/23/2022 03/23/2022 11:08 AM CDT COVID: Suspected 08/29/2022 08/29/2022 08/29/2022 7:51 PM CDT COVID: Suspected 08/29/2022 08/29/2022 08/30/2022 3:06 AM CDT COVID: Suspected 08/30/2022 08/30/2022 08/31/2022 3:05 AM CDT COVID: Suspected 08/30/2022 08/30/2022 09/01/2022 3:05 AM CDT COVID: Suspected 08/30/2022 08/30/2022 09/01/2022 3:48 AM CDT Exposure, COVID-19 Comment:Added automatically based on COVID19 lab answers indicating exposure risk 01/08/2024 01/08/2024 01/18/2024 3:[address] COVID: Suspected 01/08/2024 01/08/2024 01/08/2024 2:49 PM NETSUITE CONSULTANT COVID: Suspected 01/08/2024 01/08/2024 01/08/2024 9:30 PM NETSUITE CONSULTANT COVID: Suspected 07/16/2024 07/16/2024 07/16/2024 11:09 AM CDT documented as of this encounter Care Teams Mid Teacher Relationship Specialty Start Date End Date Sandeep Son MD PCP - General Family Medicine 08/07/20 Alondra Wolfe DPT Physical Therapist Physical Therapy 04/03/22 02/08/23 Jd Huber MD Neurologist Neurology 04/01/24 documented as of this encounter
--- OUTSIDE RECORDS SUMMARY | 2025-05-03 17:46 | XMS_ITS | Clinical Summary ---
Author Organization [facility] Address [address] [place] [id number] Phone Care Team Providers Care Turpentine Farmer Name Role Phone Sandeep Son MD Primary Care Provider [phone] Jd Huber MD Unavailable Allergies No known active allergies Medications aspirin [...] Date 20 weeks gestation of 12/07/2020 07/09/2021 Encounters Date Type Department Care Team Description 04/25/2025 Telephone [facility] Multiple Sclerosis [address] [place] [address] Mabel Goodson from Last 3 Months Immunizations Immunization Administration Dates Next Due Hep B, Adolescent or Pediatric 11/11/2002,2001,03/08/2002 IPV 11/11/2002,04/12/2002,03/08/2002 Influenza, Quadrivalent, Spl it, Preservative Free, Intramuscular 08/16/2013 MMR 04/12/2002,03/08/2002 Td, adsorbed 11/11/2002,04/12/2002,03/08/2002 Tdap 02/01/2021,07/07/2017 Surgical History Surgery Date Site/Laterality Comments KNEE ARTHROSCOPY W/ MENISCAL REPAIR WISDOM TOOTH EXTRACTION Medical History Medical History Date Comments Optic neuritis 01/15/2020 Depression Multiple sclerosis (HCC) Sleep apnea Vitamin D deficiency Social History Tobacco Use Types Packs/Day Years Used Date Smoking Tobacco: Never Tobacco Cessation:Counseling Given: Not Answered Comments No Sex and Gender Information Value Date Recorded Sex Assigned at Not on file Legal Sex Female 10:26 AM HOSPICE SOCIAL WORKER Gender Identity Female 02/28/2023 8:50 AM CDT Sexual Orientation Straight 02/28/2023 8: 50 AM CDT Obstetrics History Para Term AB IAB SAB Ectopic Multiple Livin g Live Births 3 2 Date Outcome GA Total Labor Labor/2nd/3rd Weight Sex Type Anes PTL [place] A1 A5 Name Clin Para Para Last Filed Vital Signs Vital Sign Reading [...] 01/24/2025 9:30 AM CDT Plan of Treatment Health Maintenance Due Date Last Done Comments Cervical Cancer Screening 1984 Depression Screening 1984 Varicella Vaccines (1 of 2 - 13+ 2-dose series) 01/13/1997 Regular Well Visit/Exam 18-64 01/13/2002 Covid-19 Vaccine ( - 2023- season) 2024 09/28/2022, 12/06/2021, 06/03/2021, Additional history exists Influenza Vaccine (Season Ended) 2025 08/16/2013 Breast Cancer Screening-Mammogram 11/04/2025 11/04/2024, 11/04/2024 DTaP/Tdap/Td Vaccine (3 - Td or Tdap) 02/01/2031 02/01/2021, 07/07/2017, 11/11/2002, Additional history exists Hepatitis B Screening Completed 11/11/2002 , 04/12/2002, 03/08/2002 Hepatitis C Screening Completed 01/19/2024 HPV Vaccines Aged Out No longer eligi ble based on patient's age to complete this topic Pneumococcal vaccine <65 Aged Out No longer eligible based on patient's age to complete this topic Procedures Procedure Name Priority Date/Time Associated Diagnosis Comments HEPATITIS PANEL, ACUTE Routine 01/19/2024 12:38 PM HOSPICE SOCIAL WORKER Multiple sclerosis (HCC) from Last 3 Months or Most Recently Relevant to Health Maintenance Results * Hepatitis panel, acute Blood (01/19/2024 12:38 PM HOSPICE SOCIAL WORKER) Hep A IgM Nonreactive Nonreactive [facility] Hep B core IgM Nonreactive Nonreactive [facility] Hep C Ab Nonreactive Nonreactive [facility] Comment:Antibodies to HCV no t detected. Does NOT exclude the possibility of recent exposure to HCV. Current interpretive data was last revised on 22 HepBsAg Nonreactive Nonreactive [facility] Blood 01/19/2024 12:3 8 PM HOSPICE SOCIAL WORKER 01/19/2024 1:59 PM HOSPICE SOCIAL WORKER us Min Cecile AGUIRRE LAB MICROBIOLOGY - GENERAL ORDER SOBIA Final Result [facility] Department [place] [address] from Last 3 Months or Most Recently Relevant to Health Maintenance Insurance [facility] [id number] [facility] [id number] [facility] [id number] Care Teams Turpentine Farmer Relationship Specialty Start Date End Date Sandeep Son MD PCP - General Family Medicine 08/07/20 Jd Huber MD Neurologist Neurology 04/01/24
== END 2025-05-03 16:41 | disposition home or self-care (01) ==
PROVIDERS: PCP Family Medicine; Visit Provider Nurse Practitioner Adult Health
DX: R07.9 Chest pain, unspecified (principal); R06.02 Shortness of breath; R60.0 Localized edema
CPT/HCPCS: 36415; 71046; 80053; 83540; 83550; 83880; 85025; 85380